=== PATIENT | female | born 1935 | race Caucasian/White ===

== ENCOUNTER 2016-12-05 10:30 | Inpatient (IN) | payer OTHER ==
[2016-12-03 14:20] LABS: HEMATOCRIT 39.7 % (36.0-48.0); HEMOGLOBIN 12.8 g/dL (12.0-16.0)
[2016-12-03 14:33] LABS: BUN (BLOOD UREA NITROGEN) 25 MG/DL (6-23); CALCIUM, SERUM 9.8 MG/DL (8.5-10.4); CHLORIDE, SERUM 104 MMOL/L (96-112); CO2 (CARBON DIOXIDE) 30 MMOL/L (24-34); CREATININE 1.55 MG/DL (0.55-1.02); GFR AFRICAN AMERICAN 36 ML/MIN (>=60); GFR NON AFRICAN AMERICAN 31 ML/MIN (>=60); GLUCOSE, SERUM 194 MG/DL (60-99); POTASSIUM, SERUM 4.5 MMOL/L (3.5-5.3); SODIUM, SERUM 138 MMOL/L (135-148)
--- NOTE | ~2016-12-05 | OP ---
Record Of Operation [facility] [address] [facility] [place]. [address] NAME: SALMA AMOS : 36 STATUS : ADM IN PAT#: [id number] AGE: 81 ADM/REG DATE : 12/05/16 MR#: [id number] REPORT SERV DATE: 12/06/16 DICTATED BY: BEBETO VELASQUEZ DATE: 12/05/16 REPORT STATUS : Draft TRANSCRIBED BY: MODL DATE: 12/05/16 DATE OF PROCEDURE: PREOPERATIVE DIAGNOSES: 1. Prior Coflex interspinous hardware procedure at L4-5. 2. Severe spinal stenosis, L4-5. 3. Grade 1 spondylolisthesis with instability at L4-5. POSTOPERATIVE DIAGNOSES: 1. Prior Coflex interspinous hardware procedure at L4-5. 2. Severe spinal stenosis, L4-5. 3. Grade 1 spondylolisthesis with instability at L4-5. PROCEDURE: 1. Microscopic-navigation assisted surgery. 2. Hardware removal (Coflex implant) L4-5. 3. Right and left hemilaminectomy, foraminotomy, and facetectomy. 4. Transforaminal diskectomy. 5. Anterior interbody cage insertion. 6. Posterior-lateral interbody fusion with local bone graft allograft and bone protein. 7. Posterior percutaneous Voyager instrumentation. SURGEON: Bebeto Velasquez D.O. WAREHOUSE ADMINISTRATIVE ASSISTANT: Sai Feliciano. ANESTHESIA: General. BLOOD LOSS: 100 mL. INDICATIONS: Indication for surgery and risks were explained. They are listed in last office note as well as history and physical. See that for detail. OPERATION: Antibiotic prophylaxis given. Neurophysiology monitoring leads inserted. The patient brought to the operative suite where general anesthetic including endotracheal intubation was administered. Hernandez catheter was placed with sterile technique. The patient was placed prone on a Rio spine frame. Bony prominences were carefully padded. Thoracolumbar spine scrubbed with Hibiclens solution. DuraPrep was painted, and sterile drapes applied. Because of the complexity of surgery and the need to identify correct level of surgery intraoperatively as well as desire to carry out the safest and most precise dissection with least amount of radiation exposure, I felt the intraoperative navigation was mandatory. A small stab wound was carried out over the right posterior superior iliac spine. A percutaneous pin with navigational frame was inserted in the PSIS. Intraoperative CT scan Record Of Operation [facility] [address] [place]. [address] NAME: SALMA AMOS : 36 STATUS : ADM IN PAT#: [id number] AGE: 81 ADM/REG DATE : 12/05/16 MR#: [id number] REPORT SERV DATE: 12/06/16 DICTATED BY: BEBETO VELASQUEZ DATE: 12/05/16 REPORT STATUS : Draft TRANSCRIBED BY: MODL DATE: 12/05/16 with O-arm obtained, CT information used to register the navigational system. With navigational assistance, I identified the midline at L4-5. I carried out approximately a 3 cm skin incision. The fascia divided midline, the Coflex device was localized, the soft tissues released around the device was very loose and was easily removed with just a needle long haul truck driver. After removal of the device, I then proceeded to carry out a right-sided hemilaminectomy, foraminotomy, facetectomy through the small incision working from left to right and from medial to lateral, I was able to accomplish the decompression on the right side. The wounds were irrigated. I then closed the midline fascial incision with interrupted #1 Vicryl sutures. I then used navigational assistance, I identified the L4-5 and just lateral to the facet joint on the left side, I carried out a 3 cm skin incision. A blunt navigated probe was placed through the fascia and muscle and docked over the facet joint. Muscle dilators were inserted, followed by placement of a tubular retractor over the facet joint. After placing the tubular retractor, I then used navigational assistance to identify the top of the pedicle of L5, the inferior pedicle of L4. I used a combination of a cutting bur, a marc bur, 3 and 2 mm in size as well as 2 and 3 mm Kerrison rongeur, and I removed the entire superior aspect of the facet of L5 down to the top of the pedicle. I removed the remaining intra-articular process of L4, the lamina of L4, and the pars interarticularis of L4 without incident. There was severe lateral recess and foraminal stenosis. There was moderate to severe central canal stenosis, which all was removed with Kerrison rongeurs. I removed the medial aspect of the L5 articular process to decompress the lateral recess. After the decompression was completed, the wounds were irrigated. I then carried out a transforaminal diskectomy because there was definite disc herniation with impingement on the exiting L4 nerve root. After the transforaminal diskectomy with curettes, rongeurs, and disk willam, intradiscal trial was carried out. The wound was irrigated. I used local bone graft as well as some allograft and a small dosage of bone protein impacted the interbody space. The cage was inserted through the center of the bone graft into the midline against the anterior longitudinal ligament. Some additional posterolateral interbody fusion was carried out with the same grafting material. Finally, the retractor was removed. On the right side just lateral to the facet joint, I carried out another 3 cm skin incision. Percutaneous Voyager pedicle tap and screw adjunct physical education instructor were used to tap with pedicles of L4 and 5, polyaxial Voyager screws were inserted with screw extenders. A catheter contoured lordotic ayse 40 mm in length was then placed through the top portion of the screw extenders, reduced into the tulip of the pedicle screw. The set screws inserted and tightened with a torque wrench bilaterally. Screw extenders removed. Intraoperative CT scan with O-arm repeated showing excellent position of all implants and excellent decompression of the thecal sac at the lateral recess and the foramen. The fascial opening was closed with interrupted #1 Vicryl suture. The subcutaneous tissue closed with 2-0 Vicryl sutures, 2-0 vertical mattress, nylon suture used for skin closure. Sterile dressings applied. The patient awakened, extubated, taken to recovery room in Record Of Operation [address] [address] NAME: SALMA AMOS : 36 STATUS : ADM IN [facility]#: [id number] AGE: 81 ADM/REG DATE : 12/05/16 MR#: [id number] REPORT SERV DATE: 12/06/16 DICTATED BY: BEBETO VELASQUEZ DATE: 12/05/16 REPORT STATUS : Draft TRANSCRIBED BY: ALLEN DATE: 12/05/16 satisfactory condition having tolerated the procedure well. Sponge, needle, and instrument counts were correct. No intraoperative complications noted. CORBIN/ALLEN Bebeto Velasquez D.O. / [id number] CC: Bebeto Velasquez D.O.
--- NOTE | ~2016-12-05 | DS ---
Discharge Summary [address] [place] [place]. [address] NAME: SALMA AMOS : 36 STATUS : DIS IN PAT#: [id number] AGE: 81 ADM/REG DATE : 12/05/16 MR#: [id number] REPORT SERV DATE: 12/20/16 DICTATED BY: BEBETO VELASQUEZ DATE: 12/20/16 REPORT STATUS : Draft TRANSCRIBED BY: MODTano DATE: 12/20/16 Data Collection from hospitalization DISCHARGE DIAGNOSES: 1. Prior Coflex interspinous hardware procedure at L4-5. 2. Severe spinal stenosis at L4-5. 3. Grade 1 spondylolisthesis with instability at L4-5. 4. Diabetes mellitus. 5. Hypertension. 6. Exogenous obesity. 7. Hypercholesterolemia. 8. Coronary artery disease. 9. Osteoarthritis. CONSULTATIONS: Kimo Ly M.D. PROCEDURES PERFORMED: Microscopic-navigation assisted surgery; hardware removal (Coflex implant) L4-5; right and left hemilaminectomy, foraminotomy, and facetectomy; transforaminal diskectomy; anterior interbody cage insertion; posterior lateral interbody fusion with local bone graft, allograft, and bone protein; and posterior percutaneous Voyager instrumentation on 12/05/2016. PATHOLOGY: ( ) MEDICATIONS: Norvasc 10 mg daily, aspirin 81 mg daily, Lipitor 80 mg at bedtime, vitamin D 1000 units daily, Plavix 75 mg daily, stool softener 240 mg twice a day, Nexium 20 mg daily, ferrous gluconate 324 mg daily, Neurontin 300 mg at bedtime, Amaryl 2 mg twice a day, hydralazine 100 mg twice a day, [place] 7.5/325 one tablet every four hours as needed, levothyroxine 25 mcg daily, Robaxin 500 mg every eight hours, and Lopressor 100 mg daily. CONDITION AT DISCHARGE: Stable. DISPOSITION: The patient was discharged home on a 1200-calorie diabetic diet with activities as instructed. She would follow up with Dr. Arely Diaz two weeks following discharge. HOSPITAL COURSE: This is an 81-year-old female who has a history of previous Coflex interspinous hardware procedure at L4-5. The patient had a severe spinal stenosis at L4-5. She also has grade 1 spondylolisthesis with instability at L4-5. Treatment options were discussed and it was elected to proceed with surgical intervention. She was admitted to the hospital at this time for further evaluation and treatment. Upon admission, she was taken to the operating room where she underwent the above-mentioned procedure. She tolerated this well, and there were no complications. On postop day #1, she was doing well. She had no leg pain. She said that her low back felt different. She was placed on oral medications. On postop day #2, she had done okay during the night. She was seen by Dr. Kimo Ly regarding renal insufficiency. The patient says that her serum creatinine baseline is normally around 1.7. Creatinine had risen to 1.72 at this time. Her Hernandez catheter had been removed. She did report reasonable urinary output. Wolfgang was Discharge Summary [address] [facility] [place]. [address] NAME: SALMA AMOS : 36 STATUS : DIS IN PAT#: [id number] AGE: 81 ADM/REG DATE : 12/05/16 MR#: [id number] REPORT SERV DATE: 12/20/16 DICTATED BY: BEBETO VELASQUEZ DATE: 12/20/16 REPORT STATUS : Draft TRANSCRIBED BY: ALLEN DATE: 12/20/16 going to be removed until her creatinine level stabilized. Postvoid residual was going to be checked. At this point, we saw no clinical indication for renal ultrasound. Urinary studies were going to be obtained. It was suspected that her creatinine would return or maintain its current baseline over the next 24 hours and she should be able to follow up with her renal provider following hospitalization here, and if her creatinine remained around 1.5 to 1.7, he would be agreeable to reinitiate ramipril medication on dismissal from the hospital with reasonable followup with her renal provider. Over the next couple of days, she continued to progress. Discharge planning was performed. She was passing flatus. On 12/09/2016, she seemed to be doing much better. She had no leg pain. Discharge instructions were given. Due to her improved and stable condition, she was discharged home with the above-stated instructions. Information collected by: Mel Obrien I submit the above information as my discharge summary. OLGA/ALLEN Bebeto Velasquez D.O. / [id number] CC: Kd Varghese ERIC CHRISTOPHER
--- NOTE | ~2016-12-05 | CN ---
Consultation Report [facility] [address] [place]. [address] NAME: SALMA AMOS : 36 STATUS : ADM IN PAT#: [id number] AGE: 81 ADM/REG DATE : 12/05/16 MR#: [id number] REPORT SERV DATE: 12/07/16 DICTATED BY: KIMO LY DATE: 12/07/16 REPORT STATUS : Draft TRANSCRIBED BY: MODL DATE: 12/07/16 CONSULTATION DATE OF CONSULTATION: REASON FOR CONSULTATION: Renal insufficiency. HISTORY OF PRESENT ILLNESS: This is a very pleasant 81-year-old female patient, we were asked to evaluate by Dr. Bebeto Davis. She is postop day #1 of a microscopic navigation-assisted surgery with hardware removal with of coflex implant L4-L5, right and left hemilaminectomy, foraminotomy, and fasciotomy, transforaminal diskectomy, anterior interbody cage insertion, posterolateral interbody fusion, with local bone graft, allograft, and bone protein, and posterior acute percutaneous Voyager instrumentation. We are asked to evaluate her in light of her rise in serum creatinine. Baseline creatinine appears to be around 1.5 here through the year of 2017 with minimal amount of data reflected of chronic laboratory readings. Creatinine today has risen to 1.[address] Davis for evaluation to our service. The patient reports that she chronically follows with Dr. Borwn in the [facility] for her renal needs. She states that her serum creatinine baseline is normally around 1.7. She reports no nausea, vomiting, or diarrhea. In review of her medical records while here inpatient at this time, she shows no intra or postoperative hypotension, nor use of nonsteroidal medications, nor use of contrast media. She reports a reasonable urinary output and in fact, her Hernandez catheter has been removed today. Her I's and O's are incomplete and do not reflect urinary output on available data this morning. She is awake and alert. Her is at bedside during evaluation. She denies current chest pain, nausea, vomiting, or diarrhea. PAST MEDICAL HISTORY: Positive for recent spinal surgery as listed above in HPI by Dr. Davis. History also positive for chronic renal insufficiency, followed by Dr. Brown in the [facility] according to the patient this morning on interview. History also includes diabetes mellitus, obesity, hypertension, hypercholesterolemia, coronary artery disease, and osteoarthritis. Previous coflex surgical procedures in 2015 and also previous abdominal hysterectomy. ALLERGIES: SHE LISTS NO KNOWN ALLERGIES. ACTIVE MEDICATIONS: Norvasc 10 mg p.o. daily, Lipitor 80 mg p.o. at bedtime, vitamin D 1000 units daily, Plavix 75 mg daily, Colace 100 mg p.o. b.i.d., ferrous sulfate 300 mg daily, Neurontin 300 mg p.o. at bedtime, Apresoline 100 mg p.o. b.i.d., NovoLog via sliding scale, Synthroid 25 mcg p.o. daily, Robaxin 500 mg p.o. q.8, Lopressor 100 mg p.o. daily, Protonix 40 mg p.o. daily, and Altace 5 mg daily. She also has medications for p.r.n. pain, antiemetics, and antihypertensive medications. REVIEW OF SYSTEMS: Completed. Please see HPI for pertinent details. Consultation Report [address] [place]. [address] NAME: SALMA AMOS : 36 STATUS : ADM IN [facility]#: [id number] AGE: 81 ADM/REG DATE : 12/05/16 MR#: [id number] REPORT SERV DATE: 12/07/16 DICTATED BY: KIMO LY DATE: 12/07/16 REPORT STATUS : Draft TRANSCRIBED BY: ALLEN DATE: 12/07/16 FAMILY HISTORY: Noncontributory and not reviewed during this consultation and dictation. PHYSICAL EXAMINATION: VITAL SIGNS: Blood pressure 140/66, respiratory rate 22, 96% on 2 L. Her respiratory rate is 18, and heart rate is 94 beats per minute and regular. GENERAL: She is awake, alert, and oriented x3. In no acute distress. HEENT: Normocephalic and atraumatic. Normal ocular movements. No scleral icterus or conjunctival pallor is appreciated. NECK: Supple without thyromegaly. No JVD or mass. CHEST: Shows positive S1 and S2. No rubs or gallops. LUNGS: Diminished throughout, normal expansion and effort bilaterally. GASTROINTESTINAL: Shows positive bowel sounds in all four quadrants. No appreciable mass or tenderness. GENITOURINARY: Examination is deferred. NEUROLOGIC: She appears to be grossly intact. Nonfocal. SKIN: Warm, dry, intact to visualized surfaces. Without rash, lesions, or ecchymosis. She is lying in a prone position, so, her surgical wounds from her recent surgery are not examined. LABORATORY DATA: Pertinent laboratories and imaging to this evaluation are as follows. Most recent electrolyte profile sodium 136, potassium 4.1, chloride 102, CO2 30, BUN 27, creatinine 1.72, glucose of 190. CBC; white blood cell count 9.1, RBC 3.76, hemoglobin 9.4, hematocrit 34.7, and platelets at 118. IMPRESSION AND PLAN: This is a very pleasant 81-year-old female patient, recent spinal procedure Dr. Davis as listed above in HPI. POD #1, baseline creatinine here at [facility] across the year of 2017 around 1.5, at 1.72 this a.m. prompting referral. The patient states that she has a baseline creatinine of 1.7 in the outpatient setting. Followed chronically by Dr. Brown in the [place] area. She has no instances of intra or postoperative hypotension. She has not been volume contracted by acute loss based of the review this morning with nausea, vomiting, or diarrhea, or acute blood loss during her surgical procedure. She is chronically maintained on Altace/ramipril daily and has received this medication throughout her clinical stay at this point. Urinary output has said to be reasonable, but it is not reflected in current medical data regarding urinary output over the last 24 hours. The plan at this point will be to undertake removal of Altace until her creatinine stabilizes. We will also check a postvoid residual. I see no clinical indication at this point for renal ultrasound, for completeness of workup, we can check urinary studies. I suspect that her creatinine will return or maintain its current baseline over the next 24 hours and she should be reasonable for followup with her renal provider post hospitalization here and if her creatinine remains around 1.5 to 1.7 area, I would be agreeable to re-initiation of ramipril medication on dismissal from the hospital, with reasonable follow up with her renal provider as stated by the patient today. Further modification of treatment plan may be made based on clinical presentation of the patient, laboratory results, further consultation with renal attending. Consultation Report [facility] [address] [facility] [place]. [address] NAME: BETTESALMA VELÁSQUEZ : 36 STATUS : ADM IN PAT#: [id number] AGE: 81 ADM/REG DATE : 12/05/16 MR#: [id number] REPORT SERV DATE: 12/07/16 DICTATED BY: KIMO LY DATE: 12/07/16 REPORT STATUS : Draft TRANSCRIBED BY: ALLEN DATE: 12/07/16 We appreciate the consultation. We are glad to follow with you. DICTATED BY: Jarrett Sheridan NP JR/ALLEN Kimo Ly M.D. / [id number] CC: LISS [place] ERIC CHRISTOPHER
--- NOTE | ~2016-12-05 | PREOPHP ---
PreOp History and Physical [facility] [address] [place]. [address] NAME: SALMA AMOS : 36 STATUS : ADM IN PAT#: [id number] AGE: 81 ADM/REG DATE : 12/05/16 MR#: [id number] REPORT SERV DATE: 12/05/16 DICTATED BY: BEBETO VELASQUEZ DATE: 12/05/16 REPORT STATUS : Draft TRANSCRIBED BY: MODL DATE: 12/05/16 CHIEF COMPLAINT: Severe back pain and left greater than right leg pain. HISTORY OF PRESENT ILLNESS: 81-year-old female, who has undergone a previous CoFlex procedure in [place] 2 years ago for a spinal stenosis. The patient did not get significant benefit from the procedure and has gone on to develop some intractable back pain and leg pain. She now has severe spinal stenosis and centrally as well as in the foramen at L4-5. She has a grade 1 spondylolisthesis with gross instability on lateral flexion and extension x-rays. A myelogram CT scan clearly identified the severe stenosis. There is some [id number] narrowing of the L5-S1 and L3-4 neuro foramen but not to the point of needing significant surgical treatment. With the above findings and having failed conservative care, she is brought to surgery for a microscopic and navigation assisted surgery. We will remove the CoFlex implant and proceed with a left and right L4-5 hemilaminectomy, foraminotomy, facetectomy, and we can also do a transforaminal diskectomy and an interbody cage will be inserted and a posterolateral interbody fusion which can be completed with local bone graft and allograft. Finally posterior percutaneous instrumentation from the Voyager system will be used to establish stability. Prior to surgery, risks, benefits, alternatives, and expectations have been explained in great detail. Today, in the preop holding, the patient was identified. All questions were answered. The patient voiced understanding of the risks, the willingness to accept those, and requested to proceed with surgery. Also please note, because of the complexity of surgery and the need to identify correct level of surgery intraoperatively as well as desire to carry out the safest and most precise dissection, I felt intraoperative navigation was mandatory. PAST MEDICAL HISTORY: Includes diabetes mellitus, exogenous obesity, hypertension, hypercholesterolemia, coronary artery disease, and osteoarthritis. PAST SURGICAL HISTORY: She has had the CoFlex procedure in 2014. She has also had abdominal hysterectomy. CURRENT MEDICATIONS: Include amlodipine; Atorvastatin; clopidogrel; iron; Lasix; gabapentin; glyburide; hydralazine; hydrocodone; Januvia; Synthroid; methocarbamol; metoprolol; Phenergan; ramipril; and potassium. ALLERGIES: NONE. SOCIAL HISTORY: She is and retired. Nonsmoker and no alcohol. FAMILY HISTORY: Noncontributory. REVIEW OF SYSTEMS: She denies current chest pain, pressure, or shortness of breath. She is still very active but very restricted because of severe pain in the back. PreOp History and Physical [place] [id number] [facility] [place]. [address] NAME: SALMA AMOS : 36 STATUS : ADM IN [facility]#: [id number] AGE: 81 ADM/REG DATE : 12/05/16 MR#: [id number] REPORT SERV DATE: 12/05/16 DICTATED BY: BEBETO VELASQUEZ DATE: 12/05/16 REPORT STATUS : Draft TRANSCRIBED BY: ALLEN DATE: 12/05/16 PHYSICAL EXAMINATION: VITAL SIGNS: Height, she is 5 feet 4 inches. Weight 230 pounds. GENERAL: She is alert, cooperative, well oriented. Ambulates with the trunk flexed forward. HEENT: Exam is grossly normal. LUNGS: Clear to auscultation. HEART: Regular rate and rhythm. ABDOMEN: Soft. Good bowel sounds. No peritoneal signs are noted. SPINE: The spine itself has no gross deformities except that there is a flat back in the lumbar area. She has a very restricted range of motion. She cannot even extend to neutral. She can flex forward to 50 degrees. She has no paraspinous tenderness or spasm. She has no leg length discrepancy or pelvic obliquity. She has negative straight leg raising signs. Patellar and Achilles reflexes are completely absent. There is a mild decrease in vibratory sensation from just above the ankles distally around the ankle and feet. She has a slight decreased stocking-glove sensation to light touch from below the knees bilaterally. Her motor strength overall appears to be 5/5 except the EHL is 4/5 bilateral. There are no signs of myelopathy. Toes are downgoing. No ankle clonus is found. Orthopedically, she has no pain with moving hips, knees, or ankles. Pulses are weak, but they are present and symmetrical and capillary refill is 4 seconds. No abnormal skin lesions found. ASSESSMENT AND RECOMMENDATION: As listed above. CORBIN/ALLEN Bebeto Velasquez D.O. / [id number] CC: Bebeto Velasquez D.O.
[~2016-12-05 10:30] MED LIST: ALTA5 PO; AMARYL2 PO; ASAB PO; CYANO1000T PO; FERROUS GLUC324 MG PO; HYDRALAZINE100 MG PO; KLONO5 PO; LEVOTHYROXIN25 MCG PO; LIPITOR80 MG PO; LOP100 PO; LOTE40 PO; NEUR300 PO; NEXIUM20 M1 PO; NORCO1 TAB PO; NORV10 PO; PLAVIX PO; PR25 PO; PRILO PO; STOOL SOFTEN240 MG PO; TICLID 250 MG250 MG OR; VITAMIN D1000 UNI1 PO
[2016-12-05 18:54] LABS: BASOPHILS 0.6 %; BASOPHILS ABSOLUTE 0.07 10/3/uL (0.0-0.16); EOSINOPHILS 1.1 %; EOSINOPHILS ABSOLUTE 0.13 10/3/uL (0.0-0.53); HEMATOCRIT 38.4 % (36.0-48.0); HEMOGLOBIN 12.7 g/dL (12.0-16.0); IMMATURE GRANULOCYTES 0.7 %; IMMATURE GRANULOCYTES ABSOLUTE 0.08 10/3/uL (0.0-0.11); LYMPHOCYTES 30.2 %; LYMPHOCYTES ABSOLUTE 3.49 10/3/uL (0.67-4.30); MANUAL DIFF NO %; MEAN CORPUS HGB CONC 33.1 g/dL (32.0-36.0); MEAN CORPUSCULAR HEMOGLOB 30.2 pg (26.0-34.0); MEAN CORPUSCULAR VOLUME 91.2 fL (80-100); MEAN PLATELET VOLUME 11.6 fL (9.2-13.0); MONOCYTES 2.6 %; NEUTROPHILS 64.8 %; NEUTROPHILS ABSOLUTE 7.48 10/3/uL (2.02-8.40); PLATELET COUNT 133 10/3/uL (150-400); RBC DISTRIBUTION WIDTH 12.9 % (12.0-16.0); RED CELL COUNT 4.21 10/6/uL (4.0-5.6); WHITE BLOOD CELLS 11.6 10/3/uL (4.5-10.5)
[2016-12-05 19:10] LABS: BUN (BLOOD UREA NITROGEN) 22 MG/DL (6-23); CHLORIDE, SERUM 107 MMOL/L (96-112); CO2 (CARBON DIOXIDE) 26 MMOL/L (24-34); CREATININE 1.53 MG/DL (0.55-1.02); GFR AFRICAN AMERICAN 37 ML/MIN (>=60); GFR NON AFRICAN AMERICAN 32 ML/MIN (>=60); POTASSIUM, SERUM 3.7 MMOL/L (3.5-5.3); SODIUM, SERUM 142 MMOL/L (135-148)
[2016-12-05 19:12] LABS: CALCIUM, SERUM 8.7 MG/DL (8.5-10.4); GLUCOSE, SERUM 237 MG/DL (60-99)
[2016-12-06 04:49] LABS: HEMATOCRIT 37.7 % (36.0-48.0); HEMOGLOBIN 12.6 g/dL (12.0-16.0); MANUAL DIFF YES %; MEAN CORPUS HGB CONC 33.4 g/dL (32.0-36.0); MEAN CORPUSCULAR HEMOGLOB 30.9 pg (26.0-34.0); MEAN CORPUSCULAR VOLUME 92.4 fL (80-100); PLATELET COUNT 141 10/3/uL (150-400); RBC DISTRIBUTION WIDTH 12.8 % (12.0-16.0); RED CELL COUNT 4.08 10/6/uL (4.0-5.6); WHITE BLOOD CELLS 11.5 10/3/uL (4.5-10.5)
[2016-12-06 05:06] LABS: BUN (BLOOD UREA NITROGEN) 24 MG/DL (6-23); CALCIUM, SERUM 8.2 MG/DL (8.5-10.4); CHLORIDE, SERUM 105 MMOL/L (96-112); CO2 (CARBON DIOXIDE) 28 MMOL/L (24-34); CREATININE 1.54 MG/DL (0.55-1.02); GFR AFRICAN AMERICAN 37 ML/MIN (>=60); GFR NON AFRICAN AMERICAN 32 ML/MIN (>=60); GLUCOSE, SERUM 194 MG/DL (60-99); SODIUM, SERUM 136 MMOL/L (135-148)
[2016-12-06 05:29] LABS: BASOPHILS 1 %; BASOPHILS ABSOLUTE (CALC) 0.12 10/3/uL (0.0-0.16); IMMATURE GRANS ABSOLUTE (CALC) 0.35 10/3/uL (0.0-0.11); LYMPHOCYTES 5 %; LYMPHOCYTES ABSOLUTE (CALC) 0.58 10/3/uL (0.67-4.30); METAMYELOCYTES 3 %; MONOCYTES 3 %; MONOCYTES ABSOLUTE (CALC) 0.35 10/3/uL (0.21-1.20); NEUTROPHILS ABSOLUTE (CALC) 10.12 10/3/uL (2.02-8.40); PLATELET ESTIMATE SLT DEC (ADEQUATE); SEGMENTED NEUTROPHIL (0) 88 %; TOTAL NUCLEATED CELLS 100
[2016-12-06 05:30] LABS: RBC MORPHOLOGY NORM (NORMAL)
[2016-12-07 04:29] LABS: HEMATOCRIT 34.7 % (36.0-48.0); HEMOGLOBIN 11.4 g/dL (12.0-16.0); MANUAL DIFF YES %; MEAN CORPUS HGB CONC 32.9 g/dL (32.0-36.0); MEAN CORPUSCULAR HEMOGLOB 30.3 pg (26.0-34.0); MEAN CORPUSCULAR VOLUME 92.3 fL (80-100); MEAN PLATELET VOLUME 11.9 fL (9.2-13.0); PLATELET COUNT 118 10/3/uL (150-400); RED CELL COUNT 3.76 10/6/uL (4.0-5.6); WHITE BLOOD CELLS 9.1 10/3/uL (4.5-10.5)
[2016-12-07 05:01] LABS: BUN (BLOOD UREA NITROGEN) 27 MG/DL (6-23); CALCIUM, SERUM 8.6 MG/DL (8.5-10.4); CHLORIDE, SERUM 102 MMOL/L (96-112); CO2 (CARBON DIOXIDE) 30 MMOL/L (24-34); CREATININE 1.72 MG/DL (0.55-1.02); GFR AFRICAN AMERICAN 32 ML/MIN (>=60); GFR NON AFRICAN AMERICAN 28 ML/MIN (>=60); GLUCOSE, SERUM 190 MG/DL (60-99); POTASSIUM, SERUM 4.1 MMOL/L (3.5-5.3); SODIUM, SERUM 136 MMOL/L (135-148)
[2016-12-07 06:13] LABS: BAND NEUTROPHILS 1 %; EOSINOPHILS 3 %; EOSINOPHILS ABSOLUTE (CALC) 0.27 10/3/uL (0.0-0.53); LYMPHOCYTES 8 %; LYMPHOCYTES ABSOLUTE (CALC) 0.73 10/3/uL (0.67-4.30); MONOCYTES 4 %; MONOCYTES ABSOLUTE (CALC) 0.36 10/3/uL (0.21-1.20); NEUTROPHILS ABSOLUTE (CALC) 7.74 10/3/uL (2.02-8.40); PLATELET ESTIMATE SLT DEC (ADEQUATE); RBC MORPHOLOGY NORM (NORMAL); SEGMENTED NEUTROPHIL (0) 84 %; TOTAL NUCLEATED CELLS 100
[2016-12-08 05:17] LABS: HEMATOCRIT 34.7 % (36.0-48.0); HEMOGLOBIN 11.4 g/dL (12.0-16.0); MEAN CORPUS HGB CONC 32.9 g/dL (32.0-36.0); MEAN CORPUSCULAR HEMOGLOB 30.2 pg (26.0-34.0); MEAN CORPUSCULAR VOLUME 91.8 fL (80-100); MEAN PLATELET VOLUME 11.6 fL (9.2-13.0); NUCLEATED RED BLOOD CELLS 0.2 /100WBC (0-0); PLATELET COUNT 103 10/3/uL (150-400); RBC DISTRIBUTION WIDTH 12.7 % (12.0-16.0); RED CELL COUNT 3.78 10/6/uL (4.0-5.6); WHITE BLOOD CELLS 7.7 10/3/uL (4.5-10.5)
[2016-12-08 05:19] LABS: MANUAL DIFF YES %
[2016-12-08 05:27] LABS: BUN (BLOOD UREA NITROGEN) 26 MG/DL (6-23); CHLORIDE, SERUM 103 MMOL/L (96-112); CO2 (CARBON DIOXIDE) 28 MMOL/L (24-34); CREATININE 1.58 MG/DL (0.55-1.02); GFR AFRICAN AMERICAN 35 ML/MIN (>=60); GFR NON AFRICAN AMERICAN 31 ML/MIN (>=60); GLUCOSE, SERUM 154 MG/DL (60-99); PHOSPHORUS, SERUM 2.3 MG/DL (2.5-4.5); POTASSIUM, SERUM 4.2 MMOL/L (3.5-5.3); SODIUM, SERUM 137 MMOL/L (135-148)
[2016-12-08 07:10] LABS: EOSINOPHILS 3 %; EOSINOPHILS ABSOLUTE (CALC) 0.23 10/3/uL (0.0-0.53); LYMPHOCYTES 11 %; LYMPHOCYTES ABSOLUTE (CALC) 0.85 10/3/uL (0.67-4.30); MONOCYTES 6 %; MONOCYTES ABSOLUTE (CALC) 0.46 10/3/uL (0.21-1.20); NEUTROPHILS ABSOLUTE (CALC) 6.16 10/3/uL (2.02-8.40); PLATELET ESTIMATE SLT DEC (ADEQUATE); RBC MORPHOLOGY NORM (NORMAL); SEGMENTED NEUTROPHIL (0) 80 %; TOTAL NUCLEATED CELLS 100
[2016-12-09] MEDS ORDERED: METHOC500B PO (11:16)
[2016-12-09] MEDS ORDERED: NORCO1 TA2 PO (11:16)
== END 2016-12-09 15:39 | disposition home or self-care (01) | DRG 460 ==
LOC: SDC/OF 10:30 → PACU 18:18 → 3SO 21:16
PROVIDERS: Internal Medicine; Orthopaedic Surgery Orthopaedic Surgery of the Spine; Registered Nurse
PROC: 0SP004Z Removal of Internal Fixation Device from Lumbar Vertebral Joint, Open Approach (ICD-10-PCS; principal; 2016-12-05 12:15)
PROC: 0SG00AJ Fusion of Lumbar Vertebral Joint with Interbody Fusion Device, Posterior Approach, Anterior Column, Open Approach (ICD-10-PCS; 2016-12-05 12:15)
PROC: 0ST20ZZ Resection of Lumbar Vertebral Disc, Open Approach (ICD-10-PCS; 2016-12-05 12:15)
PROC: 4A11X4G Monitoring of Peripheral Nervous Electrical Activity, Intraoperative, External Approach (ICD-10-PCS; 2016-12-05 12:15)
DX: M51.36 Other intervertebral disc degeneration, lumbar region (principal)
CPT/HCPCS: 36415; 80048; 80069; 82570; 82962; 84300; 85014; 85018; 85025; 86850; 86900; 86901; 87641; 88300; 88304; 88311; 93005; 97116-GP; 97161-GP; 97530-GP; A9270-GY; C1713; J0690; J1170; J1644; J2250; J2405; J2710; J3010